=== PATIENT | female | born 1960 | race Caucasian/White ===

== ENCOUNTER 2018-05-07 13:52 | Outpatient (CLI) | payer OTHER ==
--- NOTE | 2018-05-07 15:05 | BD ---
BONE DENSITOMETRY: INDICATION: A 57-year-old female for postmenopausal osteoporosis screening. FINDINGS: Lumbar Spine: BMD (g/cm2) L1 0.755 T-Score: -2.1 L2 0.822 T-Score: -1.9 L3 0.867 T-Score: -2.0 L4 0.874 T-Score: -1.7 L1-L4 0.832 T-Score: -2.0 Femoral Neck: 0.691 T-Score: -1.4 Total Femur: 0.897 T-Score: -0.4 Previous total lumbar density from exam 07/30/1999 recorded at 0.885. Previous femur density from exam of 07/30/1999 recorded at 0.830 Impression: Bone mineral density of the lumbar spine and femoral neck both indicate osteopenia. EN-YEAR FRACTURE RISK: Major osteoporotic fracture: 7.1%. Hip fracture: 0.5%. POS: [facility]
== END 2018-05-07 13:53 | disposition home or self-care (01) ==
LOC: BICMAMMO 13:52
PROVIDERS: ATTEND Specialist
DX: Z12.31 Encounter for screening mammogram for malignant neoplasm of breast (principal); M85.89 Other specified disorders of bone density and structure, multiple sites; Z80.3 Family history of malignant neoplasm of breast
CPT/HCPCS: 77063; 77067; 77080

== ENCOUNTER 2019-08-24 08:12 | Outpatient (CLI) | payer OTHER ==
--- NOTE | 2019-08-24 09:17 | MMO ---
Bilateral MAMMO Bilat Screen [facility]. CLINICAL HISTORY: Patient is 58 years old and is seen for screening. The patient has the following family history of breast cancer: sister, at age 61, malignant (generic). The patient has no personal history of cancer. VIEWS: The views performed were: bilateral craniocaudal with tomosynthesis and bilateral mediolateral oblique with tomosynthesis. FILMS COMPARED: The present examination has been compared to prior imaging studies performed at [facility] on 10/12/2014, 07/19/2015, 10/02/2016 and 05/07/2018. This study has been interpreted with the assistance of computer-aided detection. MAMMOGRAM FINDINGS: The breasts are heterogeneously dense, which could obscure a lesion on mammography. There are no suspicious masses, calcifications or areas of architectural distortion. Benign calcifications are noted bilaterally. There are no suspicious masses, suspicious calcifications, or new areas of architectural distortion. IMPRESSION: THERE IS NO MAMMOGRAPHIC EVIDENCE OF MALIGNANCY. A ROUTINE FOLLOW-UP MAMMOGRAM IN 1 YEAR IS RECOMMENDED. THE RESULTS OF THIS EXAM WERE SENT TO THE PATIENT. ACR BI-RADS Category 2 - Benign finding MAMMOGRAPHY NOTE: 1. A negative mammogram report should not delay a biopsy if a dominant of clinically suspicious mass is present. 2. Approximately 10% to 15% of breast cancers are not detected by mammography. 3. Adenosis and dense breasts may obscure an underlying neoplasm. Reported by: GLADYS JOSEPH MD Electonically Signed: [id number]
== END 2019-08-24 08:13 | disposition home or self-care (01) ==
LOC: BICMAMMO 08:12
PROVIDERS: ATTEND Specialist
DX: Z12.31 Encounter for screening mammogram for malignant neoplasm of breast (principal); Z80.3 Family history of malignant neoplasm of breast
CPT/HCPCS: 77063; 77067

== ENCOUNTER 2020-09-19 13:08 | Outpatient (CLI) | payer OTHER | END 2020-09-19 13:09 | disposition home or self-care (01) | LOC: BICMAMMO 13:08 | PROVIDERS: ATTEND Specialist | DX: Z12.31 Encounter for screening mammogram for malignant neoplasm of breast (principal); Z80.3 Family history of malignant neoplasm of breast | CPT/HCPCS: 77063; 77067 ==

== ENCOUNTER 2021-10-25 08:54 | Outpatient (CLI) | payer OTHER | END 2021-10-25 08:55 | disposition home or self-care (01) | LOC: BICMAMMO 08:54 | PROVIDERS: ATTEND Specialist | DX: Z12.31 Encounter for screening mammogram for malignant neoplasm of breast (principal); Z80.3 Family history of malignant neoplasm of breast | CPT/HCPCS: 77063; 77067 ==

== ENCOUNTER 2022-10-24 10:47 | Outpatient (CLI) | payer OTHER | END 2022-10-24 10:48 | disposition home or self-care (01) | LOC: BICMAMMO 10:47 | PROVIDERS: ATTEND Specialist | DX: Z12.31 Encounter for screening mammogram for malignant neoplasm of breast (principal) | CPT/HCPCS: 77063; 77067 ==

== ENCOUNTER 2022-10-28 14:11 | Outpatient (CLI) | payer OTHER | END 2022-10-28 14:12 | disposition home or self-care (01) | LOC: BICMAMMO 14:11 | PROVIDERS: ATTEND Specialist | DX: N64.89 Other specified disorders of breast (principal) | CPT/HCPCS: G0279 ==